=== PATIENT | female | born 1970 | race African-American/Black ===

== ENCOUNTER 2020-09-14 22:37 | Emergency (ER) | payer MEDICAID ==
[~2020-09-14] VITALS: Ht 165.1 cm; Wt 68.0 kg
[2020-09-14 23:57] LABS: BASOPHILS % (AUTO) 1 % (0-1); EOSINOPHILS % (AUTO) 1 % (1-7); LYMPHOCYTES % (AUTO) 13 % (22-44); MEAN CORPUSCULAR HEMOGLOBIN 29.6 pg (27.0-34.8); MEAN CORPUSCULAR HGB CONC 32.7 g/dL (32.4-35.8); MONOCYTES % (AUTO) 8 % (2-9); NEUTROPHILS % (AUTO) 79 % (42-75); PLATELET COUNT 590 x10^3/uL (130-400); RED BLOOD COUNT 2.93 x10^6/uL (3.82-5.3); RED CELL DISTRIBUTION WIDTH 18.2 % (9.6-15.2)
[2020-09-15] MEDS ORDERED: SODIUM CHLORIDE FLUSH 10ML SYR IVF ONE
[2020-09-15 00:08] LABS: ALBUMIN 2.5 g/dL (3.4-5.0); ANION GAP 5 mmol/L (5-15); CALCIUM 8.6 mg/dL (8.5-10.1); CHLORIDE 105 mmol/L (98-107); CREATININE 0.49 mg/dL (0.55-1.02)
--- NOTE | 2020-09-15 00:30 | NUR ---
PT TO CT AT THIS TIME
[2020-09-15 00:31] LABS: ANISOCYTOSIS 1+; OVALOCYTES 1+; POLYCHROMASIA 1+; TEAR DROPS 1+
--- NOTE | 2020-09-15 00:36 | NUR ---
PT BACK FROM CT. 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 CT SCAN WAS SUCCESSFULL BUT IV SITE IS SWOLLEN. COLD COMPRESS PLACED, PIV D/C'D WITH TIP INTACT. EX ELEVATED WELL. PT REFUSES NEW IV AT THIS TIME. AWAITING CT RESULTS
[2020-09-15 00:38] LABS: <PLATELET ESTIMATE> INCREASED; SMALL PLATELETS 1+
[2020-09-15] MEDS ORDERED: OMNIPAQUE 350 MG/ML, 100ML BOTTLE ONE (00:49)
[2020-09-15 01:23] VITALS: BP 127/70
--- NOTE | 2020-09-15 01:38 | NUR ---
Break RN: Patient/Spouse given discharge instructions and they have confirmed that they understand the instructions. Patient ambulatory with steady gait. NAD, all questions answered appropriately, denies additional needs at this time. No personal belongings left in room after discharge.
== END 2020-09-15 01:40 | disposition home or self-care (01) ==
LOC: ED 23:59
DX: L03.311 Cellulitis of abdominal wall (principal); T81.30XA Disruption of wound, unspecified, initial encounter; Y82.9 Unspecified medical devices associated with adverse incidents
CPT/HCPCS: 36415; 74177; 80048; 82040; 85025; 99285; Q9967